=== PATIENT | male | born 1960 | race Caucasian/White ===

== ENCOUNTER 2021-06-04 05:10 | Observation (INO) | payer OTHER ==
[~2021-06-04] VITALS: Ht 177.8 cm; Wt 78.0 kg
--- NOTE | 2021-06-04 06:18 | ED.ADGEN ---
Past Medical History Past Medical History: Hypertension Smoking Status: Never Smoker General Adult EDM: Chief Complaint: MULTIPLE COMPLAINTS HPI: HPI: Patient is a 60-year-old male who arrives ambulatory to the emergency department reporting swings in his blood pressure. Patient also states that he was eating breakfast this morning and felt lightheaded and had a very slight headache. Patient states he does not have a headache now. Patient states he decided to seek evaluation because of the sensation that he might pass out. Patient does report a history of hypertension and is faithful in taking his medications. He further states that while he does not have any personal history of coronary artery disease he has a rich family history of such and was concerned as well. Despite this, the patient denies any neurological changes. He further denies any history of chest pain or shortness of air. He is awake, alert and nontoxic appearing. Review of Systems: Review of Systems: Constitutional: Denies fever or chills. [] Eyes: Denies change in visual acuity. [] HENT: Denies nasal congestion or sore throat. [] Respiratory: Denies cough or shortness of breath. [] Cardiovascular: Reports blood pressure changes as well as sensation of being lightheaded. Denies chest pain or edema. [] GI: Denies abdominal pain, nausea, vomiting, bloody stools or diarrhea. [] : Denies dysuria. [] Musculoskeletal: Denies back pain or joint pain. [] Integument: Denies rash. [] Neurologic: Denies headache, focal weakness or sensory changes. [] Endocrine: Denies polyuria or polydipsia. [] Lymphatic: Denies swollen glands. [] Psychiatric: Denies depression or anxiety. [] Current Medications: Current Medications Medications (Trade) Dose Ordered Sig/Aida Start Time Stop Time Status Last Admin Dose Admin Ondansetron HCl (Zofran) 4 mg PRN Q8HRS PRN 06/04/21 07:00 06/05/21 06:59 Sodium Chloride 500 ml @ 500 mls/hr Q1H 06/04/21 06:30 Sodium Chloride (Normal Saline Flush) 10 ml QSHIFT PRN 06/04/21 06:30 Allergies: Allergies: Allergies Coded Allergies Type Severity Reaction Last Updated Verified No Known Drug Allergies 06/04/21 No Physical Exam: PE: Constitutional: Well developed, well nourished, no acute distress, non-toxic appearance. [] HENT: Normocephalic, atraumatic, bilateral external ears normal, oropharynx moist, no oral exudates, nose normal. [] Eyes: PERRLA, EOMI, conjunctiva normal, no discharge. [] Neck: Normal range of motion, no tenderness, supple, no stridor. [] Cardiovascular:Heart rate regular rhythm, no murmur [] Lungs & Thorax: Bilateral breath sounds clear to auscultation [] Abdomen: Bowel sounds normal, soft, no tenderness, no masses, no pulsatile masses. [] Skin: Warm, dry, no erythema, no rash. [] Back: No tenderness, no CVA tenderness. [] Extremities: No tenderness, no cyanosis, no clubbing, ROM intact, no edema. [] Neurologic: Alert and oriented X 3, normal motor function, normal sensory function, no focal deficits noted. [] Psychologic: Affect normal, judgement normal, mood normal. [] Current Patient Data: Labs: Laboratory Tests Test 06/04/21 06:00 White Blood Count 4.8 x10^3/uL (4.0-11.0) Red Blood Count 4.92 x10^6/uL (4.30-5.70) Hemoglobin 15.2 g/dL (13.0-17.5) Hematocrit 45.2 % (39.0-53.0) Mean Corpuscular Volume 92 fL (79-100) Mean Corpuscular Hemoglobin 31 pg (25-35) Mean Corpuscular Hemoglobin Concent 34 g/dL (31-37) Red Cell Distribution Width 12.8 % (11.5-14.5) Platelet Count 209 x10^3/uL (140-400) Neutrophils (%) (Auto) 67 % (31-73) Lymphocytes (%) (Auto) 23 % (24-48) L Monocytes (%) (Auto) 6 % (0-9) Eosinophils (%) (Auto) 4 % (0-3) H Basophils (%) (Auto) 0 % (0-3) Neutrophils # (Auto) 3.2 x10^3/uL (1.8-7.7) Lymphocytes # (Auto) 1.1 x10^3/uL (1.0-4.8) Monocytes # (Auto) 0.3 x10^3/uL (0.0-1.1) Eosinophils # (Auto) 0.2 x10^3/uL (0.0-0.7) Basophils # (Auto) 0.0 x10^3/uL (0.0-0.2) Sodium Level 139 mmol/L (136-145) Potassium Level 4.5 mmol/L (3.5-5.1) Chloride Level 106 mmol/L (98-107) Carbon Dioxide Level 30 mmol/L (21-32) Anion Gap 3 (6-14) L Blood Urea Nitrogen 16 mg/dL (8-26) Creatinine 1.0 mg/dL (0.7-1.3) Estimated GFR (Cockcroft-Gault) 76.0 BUN/Creatinine Ratio 16 (6-20) Glucose Level 91 mg/dL (70-99) Calcium Level 8.8 mg/dL (8.5-10.1) Magnesium Level 2.0 mg/dL (1.8-2.4) Total Bilirubin 0.6 mg/dL (0.2-1.0) Aspartate Amino Transferase (AST) 33 U/L (15-37) Alanine Aminotransferase (ALT) 31 U/L (16-63) Alkaline Phosphatase 72 U/L (46-116) Troponin I High Sensitivity 6 ng/L (4-75) Total Protein 7.7 g/dL (6.4-8.2) Albumin 3.9 g/dL (3.4-5.0) Albumin/Globulin Ratio 1.0 (1.0-1.7) Laboratory Tests 06/04/21 06:00 Laboratory Tests 06/04/21 06:00 Vital Signs: Vital Signs Date Time Temp Pulse Resp B/P (MAP) Pulse Ox O2 Delivery O2 Flow Rate FiO2 06/04/21 05:45 97.5 97 18 167/91 (116) 97 Room Air 97.5 EKG: EKG: EKG was obtained at 5:33 AM and revealed a normal sinus rhythm with a ventricular of 87 bpm. There are no other acute ST/T wave changes to denote ischemia. There is no STEMI present. [] Heart Score: C/O Chest Pain: No HEART Score for Chest Pain: HEART Score for Chest Pain Response (Comments) Value History Slighlty/Non-Suspicious 0 ECG Normal 0 Age >45 - < 65 1 Risk Factors 1 or 2 Risk Factors 1 Troponin < Normal Limit 0 Total 2 Risk Factors: Risk Factors: DM, Current or recent (<one month) smoker, HTN, HLP, family history of CAD, obesity. Risk Scores: Score 0 - 3: 2.5% MACE over next 6 weeks - Discharge Home Score 4 - 6: 20.3% MACE over next 6 weeks - Admit for Clinical Observation Score 7 - 10: 72.7% MACE over next 6 weeks - Early Invasive Strategies Radiology/Procedures: Radiology/Procedures: [][facility] [address] [place] [address] IMAGING REPORT Signed PATIENT: YOU CONRAD ACCOUNT: [id number] : 1960 LOCATION: ER AGE: 60 SEX: M EXAM STATUS: REG ER ORD. PHYSICIAN: JOANA ROSALES DO REASON: near syncope PROCEDURE: PORTABLE CHEST 1V XR CHEST 1V 06/04/2021 6:20 AM INDICATION: Near syncope COMPARISON: None available TECHNIQUE: Portable frontal view of the chest is provided. FINDINGS: The cardiomediastinal silhouette is within normal limits. Lungs are clear. There are no significant pleural effusions. There is no pulmonary vascular congestion. No pneumothorax. No suspicious osseous abnormality. IMPRESSION: There is no acute cardiopulmonary process. Electronically signed by: Elodia Parson MD (06/04/2021 6:35 AM) [facility] DICTATED and SIGNED BY: ELODIA PARSON MD DATE: 06/04/21 [id number] 0 Course & Med Decision Making: Course & Med Decision Making Pertinent Labs and Imaging studies reviewed. (See chart for details). After review the patient's imaging as well as labs and believe the patient has any acute coronary process. Nonetheless given his sensation of feeling lightheaded and syncopal I do believe he warrants admission to the hospital for further evaluation. The patient understand and has agreed to stay. He will be admitted to the hospitalist service for further evaluation. The patient has agreed to this and is currently relaxing. He is nontoxic-appearing and awaiting transport to the floor. [] Dragon Disclaimer: Dragon Disclaimer: This electronic medical record was generated, in whole or in part, using a voice recognition dictation system. Departure Departure Impression: Primary Impression: Near syncope Disposition: ADMITTED INPATIENT Admitting Physician: MARIE Condition: STABLE Referrals: SUZIE AGUSTIN MD (PCP) JOANA ROSALES DO Jun 04, 2021 06:18
[2021-06-04] MEDS ORDERED: IV NORMAL SALINE 500ML BAG 500 ML IV SCH (06:30)
[2021-06-04] MEDS ORDERED: 0.9 % SODIUM CHLORIDE 10 ML DISP.SYRIN. IV PRN (06:30)
[2021-06-04 06:31] LABS: BASO % 0 % (0-3); EOS # 0.2 x10^3/uL (0.0-0.7); EOS % 4 % (0-3); HEMATOCRIT 45.2 % (39.0-53.0); HEMOGLOBIN 15.2 g/dL (13.0-17.5); LYMPH # 1.1 x10^3/uL (1.0-4.8); LYMPH % 23 % (24-48); MEAN CORPUSCULAR HEMOGLOBIN 31 pg (25-35); MEAN CORPUSCULAR HGB CONC 34 g/dL (31-37); MEAN CORPUSCULAR VOLUME 92 fL (79-100); MONO # 0.3 x10^3/uL (0.0-1.1); MONO % 6 % (0-9); NEUT # 3.2 x10^3/uL (1.8-7.7); NEUT % 67 % (31-73); PLATELET COUNT 209 x10^3/uL (140-400); RED BLOOD COUNT 4.92 x10^6/uL (4.30-5.70); RED CELL DISTRIBUTION WIDTH 12.8 % (11.5-14.5); WHITE BLOOD COUNT 4.8 x10^3/uL (4.0-11.0)
--- NOTE | 2021-06-04 06:37 | RAD ---
XR CHEST 1V 06/04/2021 6:20 AM INDICATION: Near syncope COMPARISON: None available TECHNIQUE: Portable frontal view of the chest is provided. FINDINGS: The cardiomediastinal silhouette is within normal limits. Lungs are clear. There are no significant pleural effusions. There is no pulmonary vascular congestion. No pneumothora x. No suspicious osseous abnormality. IMPRESSION: There is no acute cardiopulmonary process. Electronically signed by: Sylwia Valdez MD (06/04/2021 6:35 AM) ART[facility]
[2021-06-04 06:41] LABS: CALCIUM 8.8 mg/dL (8.5-10.1)
[2021-06-04 06:43] LABS: POTASSIUM 4.5 mmol/L (3.5-5.1)
[2021-06-04 06:47] LABS: ALBUMIN 3.9 g/dL (3.4-5.0); TOTAL BILIRUBIN 0.6 mg/dL (0.2-1.0); TOTAL PROTEIN 7.7 g/dL (6.4-8.2)
--- NOTE | 2021-06-04 06:47 | EKG ---
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
[2021-06-04] MEDS ORDERED: ONDANSETRON PF 4 MG/2 ML VIAL. IVP PRN ×2 (07:00→08:00)
[2021-06-04] MEDS ORDERED: ELECTROLYTE (NON-ICU) PROTOCOL. MC PRN (08:00)
[2021-06-04] MEDS ORDERED: oxyCODONE/APAP 5/325 1 TAB TABLET PO PRN ×2 (08:00)
[2021-06-04] MEDS ORDERED: ACETAMINOPHEN 325 MG TABLET. PO PRN (08:00)
[2021-06-04] MEDS ORDERED: CALCIUM CARBONATE 500 MG TAB.CHEW PO PRN (08:00)
--- NOTE | 2021-06-04 08:33 | PDOC1 ---
History and Physical Date of Service: DOS: DATE: 06/04/21 TIME: 08:28 Chief Complaint: Chief Complain: near syncope History of Present Illness: HPI: Patient is 60-year-old male presented the emergency room today due to light headedness while eating breakfast. He also had a headache associated with this diffuse headache not localized to any particular point. This had resolved by presentation. However he reported that this morning he felt like he was going to pass out. Noted to be hypertensive. On home amlodipine 10 and benazepril 2.5. He also is reporting some mild left-sided chest pain. He denies any heart history but does have an extensive family history of CAD. Patient actually had a very similar episode on Wednesday that self resolved. He is worried he may be having anxiety. Past Medical/Surgical History: PMH/PSH: Hypertension Allergies: Allergies: Coded Allergies: No Known Drug Allergies (Unverified , 06/04/21) Family History: Family History: CAD Social History: Social History: Denies alcohol tobacco or drug use Current Medications: Current Medications Current Medications Sodium Chloride (Normal Saline Flush) 10 ml QSHIFT PRN IV AFTER MEDS AND BLOOD DRAWS; Start 06/04/21 at 06:30 Sodium Chloride 500 ml @ 500 mls/hr Q1H IV Last administered on 06/04/21at 07:30; Start 06/04/21 at 06:30; Stop 06/04/21 at 07:30; Status DC Ondansetron HCl (Zofran) 4 mg PRN Q8HRS PRN IVP NAUSEA/VOMITING; Start 06/04/21 at 07:00; Stop 06/05/21 at 06:59 Ondansetron HCl (Zofran) 4 mg PRN Q6HRS PRN IVP NAUSEA/VOMITING; Start 06/04/21 at 08:00 Calcium Carbonate/ Glycine (Tums) 500 mg PRN Q3HRS PRN PO UPSET STOMACH; Start 06/04/21 at 08:00 Info (Non-Icu Electrolyte Protocol) 1 ea PRN DAILY PRN MC SEE COMMENTS; Start 06/04/21 at 08:00 Oxycodone/ Acetaminophen (Percocet 5/325) 1 tab PRN Q4HRS PRN PO MILD PAIN, 1ST CHOICE; Start 06/04/21 at 08:00 Oxycodone/ Acetaminophen (Percocet 5/325) 2 tab PRN Q4HRS PRN PO MODERATE PAIN, SEVERE PAIN; Start 06/04/21 at 08:00 Acetaminophen (Tylenol) 650 mg PRN Q6HRS PRN PO Headaches, Temp > 101.5F; Start 06/04/21 at 08:00 Senna/Docusate Sodium (Senna Plus) 1 tab BID PO ; Start 06/04/21 at 09:00 Heparin Sodium (Porcine) (Heparin Sodium) 5,000 unit Q8HRS SQ ; Start 06/04/21 at 14:00 ROS: Review of Systems Review of System Unless noted in HPI 14 point review of systems was negative Physical Exam: Vital Signs: Vital Signs Date Time Temp Pulse Resp B/P (MAP) Pulse Ox O2 Delivery O2 Flow Rate FiO2 06/04/21 06:06 90 18 155/77 (103) 98 Room Air 06/04/21 05:45 97.5 97.5 Physcial Exam: GEN: No apparent distress. Alert and oriented HEENT: Normal cephalic, atraumatic, external auditory canals are patent EYES: Extraocular muscles are intact, pupil are equally round and reactive to light and accommodation MUSCULOSKELETAL: Well developed , well nourished, good range of motion ENDOCRINE: No thyromegaly was palpated LYMPHATICS: No cervical chain or axillary nodes were noted HEMATOPOIETIC: No bruising NECK: Supple, no JVD, no thyromegaly was noted LUNGS: Clear to auscultation in all lung [place] without rhonchi or wheezing HEART: RRR, S!, S2 present. Peripheral pulses intact, no obvious murmurs noted ABDOMEN: Soft, nontender. Positive bowel sounds, no organomegaly, normal bowel sounds EXTREMITIES: Without clubbing, cyanosis, or edema. Pedal pulses intact. Negative Homans sign NEUROLOGIC: Normal speech and tone. A&O x 3, moves all extremities, no obvious focal deficits PSYCHIATRIC: Normal affect, normal mood. Stable SKIN: No ulcerations or rashes, good skin turgor, no jaundice VASCULAR: Good capillary refill, neurovascular bundle appears to be intact Labs: Labs: Laboratory Tests Test 06/04/21 06:00 White Blood Count 4.8 x10^3/uL (4.0-11.0) Red Blood Count 4.92 x10^6/uL (4.30-5.70) Hemoglobin 15.2 g/dL (13.0-17.5) Hematocrit 45.2 % (39.0-53.0) Mean Corpuscular Volume 92 fL (79-100) Mean Corpuscular Hemoglobin 31 pg (25-35) Mean Corpuscular Hemoglobin Concent 34 g/dL (31-37) Red Cell Distribution Width 12.8 % (11.5-14.5) Platelet Count 209 x10^3/uL (140-400) Neutrophils (%) (Auto) 67 % (31-73) Lymphocytes (%) (Auto) 23 % (24-48) Monocytes (%) (Auto) 6 % (0-9) Eosinophils (%) (Auto) 4 % (0-3) Basophils (%) (Auto) 0 % (0-3) Neutrophils # (Auto) 3.2 x10^3/uL (1.8-7.7) Lymphocytes # (Auto) 1.1 x10^3/uL (1.0-4.8) Monocytes # (Auto) 0.3 x10^3/uL (0.0-1.1) Eosinophils # (Auto) 0.2 x10^3/uL (0.0-0.7) Basophils # (Auto) 0.0 x10^3/uL (0.0-0.2) Sodium Level 139 mmol/L (136-145) Potassium Level 4.5 mmol/L (3.5-5.1) Chloride Level 106 mmol/L (98-107) Carbon Dioxide Level 30 mmol/L (21-32) Anion Gap 3 (6-14) Blood Urea Nitrogen 16 mg/dL (8-26) Creatinine 1.0 mg/dL (0.7-1.3) Estimated GFR (Cockcroft-Gault) 76.0 BUN/Creatinine Ratio 16 (6-20) Glucose Level 91 mg/dL (70-99) Calcium Level 8.8 mg/dL (8.5-10.1) Magnesium Level 2.0 mg/dL (1.8-2.4) Total Bilirubin 0.6 mg/dL (0.2-1.0) Aspartate Amino Transf (AST/SGOT) 33 U/L (15-37) Alanine Aminotransferase (ALT/SGPT) 31 U/L (16-63) Alkaline Phosphatase 72 U/L (46-116) Troponin I High Sensitivity 6 ng/L (4-75) Total Protein 7.7 g/dL (6.4-8.2) Albumin 3.9 g/dL (3.4-5.0) Albumin/Globulin Ratio 1.0 (1.0-1.7) Laboratory Tests Test 06/04/21 06:00 White Blood Count 4.8 x10^3/uL (4.0-11.0) Red Blood Count 4.92 x10^6/uL (4.30-5.70) Hemoglobin 15.2 g/dL (13.0-17.5) Hematocrit 45.2 % (39.0-53.0) Mean Corpuscular Volume 92 fL (79-100) Mean Corpuscular Hemoglobin 31 pg (25-35) Mean Corpuscular Hemoglobin Concent 34 g/dL (31-37) Red Cell Distribution Width 12.8 % (11.5-14.5) Platelet Count 209 x10^3/uL (140-400) Neutrophils (%) (Auto) 67 % (31-73) Lymphocytes (%) (Auto) 23 % (24-48) Monocytes (%) (Auto) 6 % (0-9) Eosinophils (%) (Auto) 4 % (0-3) Basophils (%) (Auto) 0 % (0-3) Neutrophils # (Auto) 3.2 x10^3/uL (1.8-7.7) Lymphocytes # (Auto) 1.1 x10^3/uL (1.0-4.8) Monocytes # (Auto) 0.3 x10^3/uL (0.0-1.1) Eosinophils # (Auto) 0.2 x10^3/uL (0.0-0.7) Basophils # (Auto) 0.0 x10^3/uL (0.0-0.2) Sodium Level 139 mmol/L (136-145) Potassium Level 4.5 mmol/L (3.5-5.1) Chloride Level 106 mmol/L (98-107) Carbon Dioxide Level 30 mmol/L (21-32) Anion Gap 3 (6-14) Blood Urea Nitrogen 16 mg/dL (8-26) Creatinine 1.0 mg/dL (0.7-1.3) Estimated GFR (Cockcroft-Gault) 76.0 BUN/Creatinine Ratio 16 (6-20) Glucose Level 91 mg/dL (70-99) Calcium Level 8.8 mg/dL (8.5-10.1) Magnesium Level 2.0 mg/dL (1.8-2.4) Total Bilirubin 0.6 mg/dL (0.2-1.0) Aspartate Amino Transf (AST/SGOT) 33 U/L (15-37) Alanine Aminotransferase (ALT/SGPT) 31 U/L (16-63) Alkaline Phosphatase 72 U/L (46-116) Troponin I High Sensitivity 6 ng/L (4-75) Total Protein 7.7 g/dL (6.4-8.2) Albumin 3.9 g/dL (3.4-5.0) Albumin/Globulin Ratio 1.0 (1.0-1.7) Assessment/Plan Assessment/Plan Near syncope, hypertension -Presenting with couple hour history of dizziness and lightheadedness. Hypertensive on arrival. -Reports compliance with his medications. They are 10 of amlodipine 2.5 benazepril -We will resume home meds -Given near syncope and extensive cardiac disease in his family will consult cardiology -Cardiac diet -DVT prophylaxis -PT OT 18 minutes advance care planning Justifications for Admission Other Justification ALVARO DIEHL MD Jun 04, 2021 08:32
[2021-06-04] MEDS ORDERED: SENNOSIDES/DOCUSATE 8.6/50MG TABLET. PO SCH (09:00)
[2021-06-04] MEDS ORDERED: LISINOPRIL 5 MG TABLET. PO SCH (09:00)
--- NOTE | 2021-06-04 10:35 | PDOC2 ---
ML LYLES WAREHOUSE STOCKER 06/04/21 1035: CARDIAC CONSULT DATE OF CONSULT Date of Consult DATE: 06/04/21 TIME: 10:31 REASON FOR CONSULT Reason for Consult: near syncope REFERRING PHYSICIAN Referring Physician: Dr. Sanon SOURCE Source: Chart review, Patient HISTORY OF PRESENT ILLNESS HISTORY OF PRESENT ILLNESS This is a 60 yo male who presented secondary to dizziness, lightheadedness episode and labile blood pressure. Patient reports he was eating breakfast this morning when he suddenly began feeling lightheaded, dizzy. [place] as if he could pass out. Checked blood pressure at home and was 160/80 range. He denies any associated chest pain, shortness of breath, or palpitations. Reports similar episode of Wednesday following eating a banana. Had a sudden onset of feeling flush and slightly dizzy. With recurrent episode today, patient decided to come to the ED for further evaluation and treatment. Reports feeling well presently and has had no further dizziness. No acute event noted on monitor in ED. No previous h/o CAD. PAST MEDICAL HISTORY Cardiovascular: HTN Pulmonary: No pertinent hx Endocrine: No pertinent hx PAST SURGICAL HISTORY Past Surgical History: No pertinent history FAMILY HISTORY Family History: Heart Disease SOCIAL HISTORY Smoke: No ALCOHOL: none Drugs: None CURRENT MEDICATIONS CURRENT MEDICATIONS Current Medications Medications (Trade) Dose Ordered Sig/Aida Route PRN Reason Start Time Stop Time Status Last Admin Dose Admin Sodium Chloride 500 ml @ 500 mls/hr Q1H IV 06/04/21 06:30 06/04/21 07:30 DC 06/04/21 07:30 Senna/Docusate Sodium (Senna Plus) 1 tab BID PO 06/04/21 09:00 06/04/21 09:24 Amlodipine Besylate (Norvasc) 10 mg DAILY PO 06/04/21 09:00 06/04/21 09:25 Lisinopril (Prinivil) 2.5 mg DAILY PO 06/04/21 09:00 06/04/21 09:25 ALLERGIES ALLERGIES: Coded Allergies: No Known Drug Allergies (Unverified , 06/04/21) ROS Review of System 14 point ROS conducted with pertinent positives noted above in HPI PHYSICAL EXAM General: Alert, Oriented X3, Cooperative, No acute distress HEENT: Atraumatic Lungs: Clear to auscultation Heart: Regular rate Abdomen: Soft, No tenderness Extremities: No edema, Normal pulses Skin: No breakdown, No significant lesion Neuro: Normal speech, Sensation intact Psych/Mental Status: Mental status NL, Mood NL MUSCULOSKELETAL: Osteoarthritic changes both hands VITALS/I&O VITALS/I&O: Vital Signs Date Time Temp Pulse Resp B/P (MAP) Pulse Ox O2 Delivery O2 Flow Rate FiO2 06/04/21 09:25 93 135/88 06/04/21 06:06 18 98 Room Air 06/04/21 05:45 97.5 97.5 LABS Lab: Laboratory Tests Test 06/04/21 06:00 White Blood Count 4.8 x10^3/uL (4.0-11.0) Red Blood Count 4.92 x10^6/uL (4.30-5.70) Hemoglobin 15.2 g/dL (13.0-17.5) Hematocrit 45.2 % (39.0-53.0) Mean Corpuscular Volume 92 fL (79-100) Mean Corpuscular Hemoglobin 31 pg (25-35) Mean Corpuscular Hemoglobin Concent 34 g/dL (31-37) Red Cell Distribution Width 12.8 % (11.5-14.5) Platelet Count 209 x10^3/uL (140-400) Neutrophils (%) (Auto) 67 % (31-73) Lymphocytes (%) (Auto) 23 % (24-48) L Monocytes (%) (Auto) 6 % (0-9) Eosinophils (%) (Auto) 4 % (0-3) H Basophils (%) (Auto) 0 % (0-3) Neutrophils # (Auto) 3.2 x10^3/uL (1.8-7.7) Lymphocytes # (Auto) 1.1 x10^3/uL (1.0-4.8) Monocytes # (Auto) 0.3 x10^3/uL (0.0-1.1) Eosinophils # (Auto) 0.2 x10^3/uL (0.0-0.7) Basophils # (Auto) 0.0 x10^3/uL (0.0-0.2) Sodium Level 139 mmol/L (136-145) Potassium Level 4.5 mmol/L (3.5-5.1) Chloride Level 106 mmol/L (98-107) Carbon Dioxide Level 30 mmol/L (21-32) Anion Gap 3 (6-14) L Blood Urea Nitrogen 16 mg/dL (8-26) Creatinine 1.0 mg/dL (0.7-1.3) Estimated GFR (Cockcroft-Gault) 76.0 BUN/Creatinine Ratio 16 (6-20) Glucose Level 91 mg/dL (70-99) Calcium Level 8.8 mg/dL (8.5-10.1) Magnesium Level 2.0 mg/dL (1.8-2.4) Total Bilirubin 0.6 mg/dL (0.2-1.0) Aspartate Amino Transferase (AST) 33 U/L (15-37) Alanine Aminotransferase (ALT) 31 U/L (16-63) Alkaline Phosphatase 72 U/L (46-116) Troponin I High Sensitivity 6 ng/L (4-75) Total Protein 7.7 g/dL (6.4-8.2) Albumin 3.9 g/dL (3.4-5.0) Albumin/Globulin Ratio 1.0 (1.0-1.7) Laboratory Tests 06/04/21 06:00 Laboratory Tests 06/04/21 06:00 ASSESSMENT/PLAN ASSESSMENT/PLAN 1. Dizziness, near syncope; resolved. No arrhythmias noted on tele thus far. 2. Hypertension; elevated upon arrival. Now improved Recommendations TSH, Lipids Echo to assess LV systolic function Resume home antiHTN therapy. Titrate as warranted Consider outpatient event monitor, ischemic evaluations Supportive care Further pending above. TINO LOUIE MD 06/05/21 1035: CARDIAC CONSULT ASSESSMENT/PLAN ASSESSMENT/PLAN Late entry for 06/04/2021 Patient seen and examined. Agree with above nurse practitioner note. Echocardiogram is unremarkable. ML LYLES APRN Jun 04, 2021 10:35 TINO LOUIE MD Jun 05, 2021 10:35
[2021-06-04 10:55] LABS: CHOLESTEROL/HDL RATIO 2.1
[2021-06-04 13:10] VITALS: BP 142/83
[2021-06-04] MEDS ORDERED: ATOR40TA59 PO (13:18)
[2021-06-04] MEDS ORDERED: BENA10TA67 PO (13:18)
[2021-06-04] MEDS ORDERED: AMLO2.5T5 PO (13:18)
[2021-06-04] MEDS ORDERED: HEPARIN for SUB-Q USE 5,000 UNIT/ML VIAL. SQ SCH (14:00)
--- NOTE | 2021-06-04 14:00 | NUR ---
Pt wanting to go home. Cardiology notified that echo has been completed and pts wishes. Cardiology said is was ok just to follow up with Deepa for stress test. Dr Sanon notified and orders received.
--- NOTE | 2021-06-04 14:33 | NUR ---
Pt refused heparin, hoping to go home later this afternoon.
--- NOTE | 2021-06-05 12:13 | CARD ---
MR#: [id number] Date of Study: 06/04/2021 Ordering Physician: ML LYLES, Referring Physician: ML LYLES, Tech: [facility] APPROVED REPORT EXAM: Two-dimensional and M-mode echocardiogram with Doppler and color Doppler. Other Information Quality : AverageHR: 77bpm Rhythm : NSR INDICATION Dizziness and Vertigo 2D DIMENSIONS RVDd4.5 (2.9-3.5cm)Left Atrium(2D)3.2 (1.6-4.0cm) IVSd1.1 (0.7-1.1cm)Aortic Root(2D)3.7 (2.0-3.7cm) LVDd4.3 (3.9-5.9cm)LVOT Diameter2.3 (1.8-2.4cm) PWd1.0 (0.7-1.1cm)LVDs2.7 (2.5-4.0cm) FS (%) 37.7 %SV55.8 ml LVEF(%)68.1 (>50%) Aortic Valve AoV Peak Velasquez.124.9cm/sAoV VTI23.3cm AO Peak GR.6.2mmHgLVOT Peak Velasquez.95.5cm/s AO Mean GR.3mmHgAVA (VMAX)3.31cm2 Mitral Valve MV E Dtdplkpz61.0cm/sMV DECEL [id number] MV A Nxzkmtas70.1cm/sE/A Ratio1.1 Tricuspid Valve TR P. [id number]/sTR Peak Gr.24mmHg LEFT VENTRICLE The left ventricle is normal size. There is normal left ventricular wall thickness. The left ventricu lar systolic function is normal. Estimated ejection fraction 60%, There is normal LV segmental wall motion. The left ventricular diastolic function and filling is normal for age. RIGHT VENTRICLE The right ventricle is normal size. There is normal right ventricular wall thickness. The right ventr icular systolic function is normal. ATRIA The left atrium size is normal. The right atrium size is normal. The interatrial septum is intact wit h no evidence for an atrial septal defect or patent foramen ovale as noted on 2-D or Doppler imaging. AORTIC VALVE The aortic valve is normal in structure and function. Doppler and Color Flow revealed no significant aortic regurgitation. There is no significant aortic valvular stenosis. MITRAL VALVE The mitral valve is normal in structure and function. There is no evidence of mitral valve prolapse. There is no mitral valve stenosis. Doppler and Color Flow revealed no mitral valve regurgitation note d. TRICUSPID VALVE The tricuspid valve is normal in structure and function. Doppler and Color Flow revealed no tricuspid valve regurgitation noted. There is no tricuspid valve stenosis. PULMONIC VALVE The pulmonary valve is normal in structure and function. Doppler and Color Flow revealed no pulmonic valvular regurgitation. GREAT VESSELS The aortic root is mildly enlarged. The IVC is normal in size and collapses >50% with inspiration. PERICARDIAL EFFUSION There is no evidence of significant pericardial effusion. Critical Notification Critical Value: No <Conclusion> The left ventricular systolic function is normal. Estimated ejection fraction 60%, There is normal LV segmental wall motion. There is no evidence of significant pericardial effusion. Signed by : Demetrius Schwartz, Electronically Approved : 06/05/2021 12:13:18
== END 2021-06-04 15:53 | disposition home or self-care (01) ==
LOC: ER 05:10 → ED HOLD 07:00 → 1 WEST ICU 07:25
PROVIDERS: ADMIT Student in an Organized Health Care Education/Training Program; ATTEND Student in an Organized Health Care Education/Training Program
DX: R55 Syncope and collapse (principal); I10 Essential (primary) hypertension
CPT/HCPCS: 36415; 71045; 80053; 80061; 83735; 84443; 84484; 85025; 93005; 93306; 96360; 96361; 97161; 97165; 99285; G0378; J7040; G0379; C8929